=== PATIENT | male | born 1950 | race Caucasian/White ===

== ENCOUNTER 2021-11-07 00:44 | Day surgery (SDC) | payer MEDICARE, OTHER, SELFPAY ==
[2021-11-04 14:29] VITALS: BMI 29.9
[2021-11-07 06:52] VITALS: BMI 30.9
[2021-11-07 06:56] VITALS: BP 134/81; PULSE 70; RESP 20; TEMP 36.5; O2SAT 99
[2021-11-07] MEDS: LACTATED RINGERS 1,000 ML 150 ML IV CONT (06:57)
--- NOTE | 2021-11-07 07:22 | WPDANESEPPF ---
Anes - Initial Pre Proc Eval Procedure: Operation Date: 11/07/21 08:00 Proposed Procedures p Esophagogastroduodenoscopy - Estevan Hu MD Date/Time: 11/07/21 07:22 Surgeon: Estevan Hu MD Pre Op Diagnosis: dysphagia Patient Data Age: 71 Gender: M Height: 1.78 m Weight: 97.7 kg Last Vital Signs Temp 36.5 C 11/07/21 06:56 Pulse 70 11/07/21 06:56 Resp 20 11/07/21 06:56 BP 134/81 11/07/21 06:56 Pulse Ox 99 11/07/21 06:56 Allergies Allergy/AdvReac Type Severity Reaction Status Date / Time No Known Allergies Allergy Verified 11/07/21 06:50 Home Medications Medication Instructions Recorded Confirmed Type atorvastatin 40 mg PO DAILY 11/04/21 11/07/21 History clopidogrel 75 mg PO DAILY 11/04/21 11/04/21 History lisinopril 2.5 mg PO DAILY 11/04/21 11/07/21 History Patient hx anesthesia problems: none Family hx anesthesia problems: none Results Review: All pre-operative results and documents have been reviewed as part of the pre-operative evaluation. [facility] Past Medical History Medical History CAD (coronary artery disease) GERD (gastroesophageal reflux disease) Hyperlipidemia Surgical History Surgical History Stented coronary artery Social History Social History Smoking packs per day: 1.5 Smoking cigarettes per day: 30.0 Years smoked: 25 Smoking pack-years: 37.50 Smoking status: Former smoker Tobacco type: cigarettes Alcohol intake: current Substance use: never Substance use type: does not use Living arrangements: with family Spiritual care concerns: No Anes - Eval Final PreProcedure Day of Procedure 11/07/21 07:22 Patient weight: obese Heart: regular rate and rhythm Lungs: decreased breath sounds Airway: Mallampati scale class II Neurological: alert and oriented Last oral intake: >/= 8 hours ASA classification: III Emergent: no Anesthetic plan: proceed Anesthesia type and monitoring: general GIVS and standard monitoring Results Review: All pre-operative results and documents have been reviewed as part of the pre-operative evaluation. Informed Consent: The patient's anesthetic plan and its attendant risks and benefits were discussed with the patient/family/POA. Questions were solicited and answers provided to the satisfaction of the patient/family/POA.
--- NOTE | 2021-11-07 07:24 | PM.HPGS ---
History of Present Illness History of Present Illness Consent: Risks, benefits, and alternatives have been discussed and questions answered. Patient agrees to proceed with procedure. Chief complaint: dysphagia Narrative: Hardik Bejarano is a 71 year old male With increasing dysphagia over the past 6 months for he has had heartburn quite a bit this year. He usually uses an [id number] remedies such as Tums. He denies vomiting. He denies food impaction lasting longer than a minute or 2. There has been no weight loss Review of Systems Review of Systems: All systems reviewed & are unremarkable except as noted in HPI and below PMFSH Past Medical History Medical History CAD (coronary artery disease) GERD (gastroesophageal reflux disease) Hyperlipidemia Surgical History Surgical History Stented coronary artery Social History Social History Smoking packs per day: 1.5 Smoking cigarettes per day: 30.0 Years smoked: 25 Smoking pack-years: 37.50 Smoking status: Former smoker Tobacco type: cigarettes Alcohol intake: current Substance use: never Substance use type: does not use Living arrangements: with family Spiritual care concerns: No Meds Home Medications and Allergies Home Medications Medication Instructions Recorded Confirmed Type atorvastatin 40 mg PO DAILY 11/04/21 11/07/21 History clopidogrel 75 mg PO DAILY 11/04/21 11/04/21 History lisinopril 2.5 mg PO DAILY 11/04/21 11/07/21 History Allergies Allergy/AdvReac Type Severity Reaction Status Date / Time No Known Allergies Allergy Verified 11/07/21 06:50 Vital Signs Vital Signs - 24 hr 11/07/21 06:56 Temperature 36.5 C Pulse Rate 70 Respiratory Rate 20 Blood Pressure 134/81 Pulse Oximetry 99 Exam Const: General: alert Orientation/consciousness: patient oriented x3 Resp: Auscultation: clear to auscultation bilaterally Cardio: Rhythm: regular rhythm GI: GI Palp: Yes Soft to palpation and No Tenderness to palpation present (GI) Neuro: General: patient oriented x3 Assessment and Plan Assessment and plan (1) Dysphagia: Code(s): R13.10 - Dysphagia, unspecified Status: Acute Assessment and Plan: EGD with possible biopsy or dilatation or cautery.
[2021-11-07 07:59] VITALS: BP 116/51; PULSE 67; RESP 14; O2SAT 94
[2021-11-07 08:09] VITALS: BP 109/51; PULSE 64; RESP 14; O2SAT 96
[2021-11-07 08:19] VITALS: BP 114/62; PULSE 58; RESP 13; O2SAT 97
[2021-11-07 08:29] VITALS: BP 123/60; PULSE 61; RESP 13; O2SAT 94
== END 2021-11-07 08:48 | disposition home or self-care (01) ==
PROVIDERS: PCP Internal Medicine; Visit Provider Internal Medicine Gastroenterology
PROC: 0DJ08ZZ Inspection of Upper Intestinal Tract, Via Natural or Artificial Opening Endoscopic (ICD-10-PCS; CPT 43235; principal; 2021-11-07 08:00)
DX: K22.2 Esophageal obstruction (principal); K44.9 Diaphragmatic hernia without obstruction or gangrene; K29.70 Gastritis, unspecified, without bleeding; K21.00 Gastro-esophageal reflux disease with esophagitis, without bleeding; I25.10 Atherosclerotic heart disease of native coronary artery without angina pectoris; E78.5 Hyperlipidemia, unspecified; Z87.891 Personal history of nicotine dependence; Z79.02 Long term (current) use of antithrombotics/antiplatelets; Z95.5 Presence of coronary angioplasty implant and graft; E66.9 Obesity, unspecified; Z68.30 Body mass index [BMI] 30.0-30.9, adult
CPT/HCPCS: 43239; 43249; 87081; 88305; C1726; J2704; J7120

== ENCOUNTER 2023-07-14 01:16 | Day surgery (SDC) | payer MEDICARE, OTHER, SELFPAY ==
[2023-07-08 09:11] VITALS: BMI 28.1
--- NOTE | 2023-07-13 13:16 | PM.HPGS ---
History of Present Illness History of Present Illness Consent: Risks, benefits, and alternatives have been discussed and questions answered. Patient agrees to proceed with procedure. Chief complaint: hx colon polyps Narrative: Hardik Bejarano is a 73 year old male who was referred for colon cancer screening. He has history of polyps. Review of Systems Review of Systems: All systems reviewed & are unremarkable except as noted in HPI and below PMFSH Past Medical History Medical History CAD (coronary artery disease) GERD (gastroesophageal reflux disease) Hyperlipidemia Surgical History Surgical History Stented coronary artery Social History Social History Smoking packs per day: 1.5 Smoking cigarettes per day: 30.0 Years smoked: 25 Smoking pack-years: 37.50 Smoking status: Former smoker Tobacco type: cigarettes Alcohol intake: current Drinks per week: 1 Substance use: never Substance use type: does not use Living arrangements: with family Spiritual care concerns: No Meds Home Medications and Allergies Home Medications Medication Instructions Recorded Confirmed Type atorvastatin 40 mg tablet 40 mg PO DAILY 11/04/21 07/08/23 History clopidogrel 75 mg tablet 75 mg PO DAILY 11/04/21 07/14/23 History lisinopril 5 mg tablet 5 mg PO DAILY 07/08/23 07/08/23 History tamsulosin 0.4 mg capsule 0.4 mg PO HS 07/08/23 07/08/23 History Allergies Allergy/AdvReac Type Severity Reaction Status Date / Time No Known Allergies Allergy Verified 07/14/23 06:46 Exam Resp: Auscultation: clear to auscultation bilaterally Cardio: Rate: regular rate Rhythm: regular rhythm GI: GI Palp: Yes Soft to palpation and No Tenderness to palpation present (GI) Assessment and Plan Assessment and plan (1) Colon cancer screening: Code(s): Z12.11 - Encounter for screening for malignant neoplasm of colon Status: Acute Assessment and Plan: Colonoscopy with possible biopsy or polypectomy or cautery or injection of substances.
[2023-07-14 06:49] VITALS: BP 110/62; PULSE 68; RESP 20; TEMP 36; O2SAT 100
[2023-07-14] MEDS: LACTATED RINGERS 1,000 ML 150 ML IV CONT (07:01)
--- NOTE | 2023-07-14 07:47 | WPDANESEPPF ---
Anes - Initial Pre Proc Eval Procedure: Operation Date: 07/14/23 08:00 Proposed Procedures p Colonoscopy - Estevan Hu MD Date/Time: 07/14/23 07:47 Surgeon: Estevan Hu MD Pre Op Diagnosis: hx colon polyps Patient Data Age: 73 Gender: M Height: 1.78 m Weight: 87.7 kg Last Vital Signs Temp 96.8 F L 07/14/23 06:49 Pulse 68 07/14/23 06:49 Resp 20 07/14/23 06:49 BP 110/62 07/14/23 06:49 Pulse Ox 100 07/14/23 06:49 O2 Del Method Room Air 07/14/23 06:49 Allergies Allergy/AdvReac Type Severity Reaction Status Date / Time No Known Allergies Allergy Verified 07/14/23 06:46 Home Medications Medication Instructions Recorded Confirmed Type atorvastatin 40 mg tablet 40 mg PO DAILY 11/04/21 07/08/23 History clopidogrel 75 mg tablet 75 mg PO DAILY 11/04/21 07/14/23 History lisinopril 5 mg tablet 5 mg PO DAILY 07/08/23 07/08/23 History tamsulosin 0.4 mg capsule 0.4 mg PO HS 07/08/23 07/08/23 History Patient hx anesthesia problems: none Family hx anesthesia problems: none Results Review: All pre-operative results and documents have been reviewed as part of the pre-operative evaluation. [facility] Past Medical History Medical History CAD (coronary artery disease) GERD (gastroesophageal reflux disease) Hyperlipidemia Surgical History Surgical History Stented coronary artery Social History Social History Smoking packs per day: 1.5 Smoking cigarettes per day: 30.0 Years smoked: 25 Smoking pack-years: 37.50 Smoking status: Former smoker Tobacco type: cigarettes Alcohol intake: current Drinks per week: 1 Substance use: never Substance use type: does not use Living arrangements: with family Spiritual care concerns: No Anes - Eval Final PreProcedure Day of Procedure 07/14/23 07:47 Patient weight: normal Heart: regular rate and rhythm Lungs: clear to auscultation Airway: Mallampati scale class II Neurological: alert and oriented Last oral intake: >/= 8 hours ASA classification: III Emergent: no Anesthetic plan: proceed Anesthesia type and monitoring: general GIVS and standard monitoring Results Review: All pre-operative results and documents have been reviewed as part of the pre-operative evaluation. Informed Consent: The patient's anesthetic plan and its attendant risks and benefits were discussed with the patient/family/POA. Questions were solicited and answers provided to the satisfaction of the patient/family/POA.
[2023-07-14 08:10] VITALS: BP 80/43; PULSE 57; RESP 20; O2SAT 96
[2023-07-14 08:20] VITALS: BP 89/51; PULSE 54; RESP 20; O2SAT 97
[2023-07-14 08:30] VITALS: BP 90/57; PULSE 54; RESP 20; O2SAT 98
== END 2023-07-14 08:37 | disposition home or self-care (01) ==
PROVIDERS: PCP Internal Medicine; Visit Provider Internal Medicine Gastroenterology
PROC: 0DJD8ZZ Inspection of Lower Intestinal Tract, Via Natural or Artificial Opening Endoscopic (ICD-10-PCS; CPT 45378; principal; 2023-07-14 08:00)
DX: Z12.11 Encounter for screening for malignant neoplasm of colon (principal); K57.30 Diverticulosis of large intestine without perforation or abscess without bleeding; K64.8 Other hemorrhoids; Z86.010 Personal history of colon polyps; I25.10 Atherosclerotic heart disease of native coronary artery without angina pectoris; K21.9 Gastro-esophageal reflux disease without esophagitis; E78.5 Hyperlipidemia, unspecified; Z95.5 Presence of coronary angioplasty implant and graft; Z87.891 Personal history of nicotine dependence; Z79.02 Long term (current) use of antithrombotics/antiplatelets
CPT/HCPCS: G0105; J2704; J7120